=== PATIENT | male | born 1970 | race American Indian/Alaskan Native ===

== ENCOUNTER 2018-06-26 23:30 | Emergency (ER) | payer MEDICAID, SELFPAY ==
[2018-06-26 23:38] VITALS: BP 98/65; PULSE 80; RESP 18; TEMP 36.6; O2SAT 98
--- NOTE | 2018-06-27 01:20 | ED.SYNCOPE ---
HPI - Syncope General Chief Complaint: Syncope Stated Complaint: passed out several times, thinks had stroke Time Seen by Provider: 06/27/18 01:19 Source: patient Mode of arrival: ambulatory History of Present Illness HPI narrative: Patient is a 47-year-old male who presents with 2 syncopal episodes. He was outside [employer] most of the day. When he got home he was on the couch he got up to use the restroom he got tunnel vision lightheaded a felt as though he was going down. He lowered himself to the ground passed out briefly. No nausea or vomiting some brief all shaking all lasting under 2 min. He was able to get up apparently he passed out again. His he says that he only ate breakfast this morning he had very little water. He denies any alcohol use. Does admit to smoking THC oil. complaint: felt faint Related Data Home Medications Medication Instructions Recorded Confirmed ASPIRIN (Aspirin) 324 mg PO #0 02/27/11 IBUPROFEN (Motrin / Advil) 600 mg PO PRN #0 02/27/11 Review of Systems Review of Systems All systems reviewed & are unremarkable except as noted in HPI and below Constitutional Denies body ache(s), Denies chills, Denies fatigue and Denies fever(s) Eyes Denies change in vision, Denies eye discharge, Denies irritation and Denies loss of vision ENT Ears, Nose, Mouth, and Throat: Denies vertigo and Denies dizziness Cardiovascular Reports as per HPI, Denies chest pain, Reports syncope, Denies irregular heart rhythm, Denies dyspnea and Denies dyspnea on exertion Respiratory Denies cough, Denies dyspnea, Denies dyspnea on exertion and Denies wheezing Gastrointestinal Gastrointestinal: Denies abdominal pain, Denies change in bowel habits, Denies diarrhea, Denies nausea and Denies vomiting Musculoskeletal Denies back pain, Denies muscle weakness, Denies numbness and Denies tingling Neurologic Denies vertigo, Denies dizziness, Reports syncope, Denies loss of vision, Denies numbness and Denies tingling Endocrine Denies fatigue Allergic/Immunologic Denies wheezing [facility] Medical History Healthy adult (Acute) Social History Smoking Status: Former smoker Exam Initial Vital Signs Initial Vital Signs: Vital Signs Temperature 98 F 06/26/18 23:38 Pulse Rate 80 06/26/18 23:38 Respiratory Rate 18 06/26/18 23:38 Blood Pressure 98/65 06/26/18 23:38 Pulse Oximetry 98 06/26/18 23:38 GENERAL: Well-appearing, well-nourished and in no acute distress. HEENT: Head atraumatic,EOMI, pupils reactive, face symmetric, moist mucous membranes CARDIOVASCULAR: Regular rate and rhythm without murmurs, rubs or gallops. RESPIRATORY: Breath sounds equal bilaterally, no wheezes rales or rhonchi. ABDOMEN: Soft, nontender. Normoactive bowel sounds all 4 quadrants. No guarding or rebound. EXTREMITIES: Normal range of motion, no clubbing or edema. Neurovascularly intact NEUROLOGICAL: Alert and oriented x4.Normal gait and speech. Cranial nerves II through XII grossly intact. Good [id number], good [id number], strength equal bilaterally, no dysarthria or aphasia, sensation in tact to soft touch bilaterally, no visual changes, no facial droop SKIN: Warm, dry, no laceration, no petechiae, no rashes or lesions. Scores NIH Stroke Scale Level of Conciousness: Alert, keenly responsive Ask month/age: Answers both questions correctly. Open/close eyes, close hand: Performs both tasks correctly Best gaze horizontal: Normal Visual silverman: No visual loss Facial palsy: Normal symetrical movement Left arm drift: No drift for full 10 sec Right arm drift: No drift for full 10 sec Left leg drift: No drift for full 10 sec Right leg drift: No drift for full 10 sec Limb ataxia: Absent Sensory on face/arms/legs: Normal, no sensory loss Best language: No aphasia, normal Dysarthria: Normal Extinction or inattention: No abnormality Total NIH Stroke scale score: 0 Course Orders Ordered: ED Orders 06/27/18 EKG-12 Lead Routine 06/27/18 01:24 Basic Metabolic Panel Stat Complete Blood Count AUTO DIFF Stat Discontinued Medications Sodium Chloride (Normal Saline 0.9%) 1,000 mls @ 1,000 mls/hr IV BOLUS ONE Stop: 06/27/18 02:18 Last Infusion: 06/27/18 02:30 Dose: 0 mls/hr Admin: 06/27/18 01:40 Dose: 1,000 mls/hr Vital Signs - 8 hr 06/26/18 23:38 06/27/18 02:35 Temperature 98 F Pulse Rate 80 75 Respiratory Rate 18 15 Blood Pressure 98/65 115/77 Pulse Oximetry 98 100 MDM - Syncope Lab Data Attestation: I reviewed the patient's lab results. Result diagrams: 06/27/18 01:24 06/27/18 01:24 Lab Results 06/27/18 06/27/18 Range/Units 01:24 01:24 WBC 12.6 H (4.5-11.0) X10^3/uL RBC 5.14 (4.5-5.9) X10^6/uL Hgb 14.7 (13.5-17.5) g/dL Hct 44.7 (41-53) % MCV 86.9 (80-100) fL MCH 28.6 (26-34) PG MCHC 32.9 (30-36) % RDW 16.1 H (11.6-14.8) % Plt Count 219 (150-400) X10^3/uL Neut % (Auto) 82.7 H (50-75) % Lymph % (Auto) 9.8 L (25-40) % [place] % (Auto) 6.6 (3-14) % Eos % (Auto) 0.1 L (2-4) % Baso % (Auto) 0.8 (0-2) % Neut # (Auto) 96848 H (2803-6350) /uL Sodium 136 L (137-145) mmol/L Potassium 3.7 (3.4-5.1) mmol/L Chloride 94 L (98-107) mmol/L Carbon Dioxide 31 (22-32) mmol/L BUN 10 (9-20) mg/dL Creatinine 0.80 (0.66-1.25) mg/dL Estimated GFR > 60.0 (>60) mL/min BUN/Creatinine Ratio 12.5 (6-22) Glucose 145 H (70-100) mg/dL Calcium 9.0 (8.4-10.2) mg/dL ECG Data Attestation: I personally reviewed and interpreted this ECG as follows: Prior ECG tracings: available for review Interpretation: Normal sinus rhythm rate [address] changes normal intervals MDM Narrative Medical decision making narrative: Patient is feeling much better. He likely had a vasovagal episode. Discharge Plan Departure Patient Disposition: Home, Self-Care Clinical Impression: Vasovagal syncope Discharge Date/Time: 06/27/18 02:36 Interventions: ED Discharge Assessment Last Done: 06/27/18 02:35 Instructions: DI for Syncope in Adults (Fainting) Activity Restrictions/Additional Instructions: *You have been diagnosed with fainting episode *What to do: She eat frequently drink plenty of water throughout the day *Continue to take medications as directed *Follow up with your primary care provider in 2-3 days *Return to ER if you should have any new, worsening or concerning symptoms Prescriptions: No Action IBUPROFEN (Motrin / Advil) 600 mg PO PRN Qty: 0 RF: 0 ASPIRIN (Aspirin) 324 mg PO Qty: 0 RF: 0
--- NOTE | 2018-06-27 01:25 | ED_ITS ---
HPI - Syncope General Chief Complaint: Syncope Stated Complaint: passed out several times, thinks had stroke Time Seen by Provider: 06/27/18 01:19 Source: patient Mode of arrival: ambulatory History of Present Illness HPI narrative: Patient is a 47-year-old male who presents with 2 syncopal episodes. He was outside [employer] most of the day. When he got home he was on the couch he got up to use the restroom he got tunnel vision lightheaded a felt as though he was going down. He lowered himself to the ground passed out briefly. No nausea or vomiting some brief all shaking all lasting under 2 min. He was able to get up apparently he passed out again. His he says that he only ate breakfast this morning he had very little water. He denies any alcohol use. Does admit to smoking THC oil. complaint: felt faint Related Data Home Medications Medication Instructions Recorded Confirmed ASPIRIN (Aspirin) 324 mg PO #0 02/27/11 IBUPROFEN (Motrin / Advil) 600 mg PO PRN #0 02/27/11 Review of Systems Review of Systems All systems reviewed & are unremarkable except as noted in HPI and below Constitutional Denies body ache(s), Denies chills, Denies fatigue and Denies fever(s) Eyes Denies change in vision, Denies eye discharge, Denies irritation and Denies loss of vision ENT Ears, Nose, Mouth, and Throat: Denies vertigo and Denies dizziness Cardiovascular Reports as per HPI, Denies chest pain, Reports syncope, Denies irregular heart rhythm, Denies dyspnea and Denies dyspnea on exertion Respiratory Denies cough, Denies dyspnea, Denies dyspnea on exertion and Denies wheezing Gastrointestinal Gastrointestinal: Denies abdominal pain, Denies change in bowel habits, Denies diarrhea, Denies nausea and Denies vomiting Musculoskeletal Denies back pain, Denies muscle weakness, Denies numbness and Denies tingling Neurologic Denies vertigo, Denies dizziness, Reports syncope, Denies loss of vision, Denies numbness and Denies tingling Endocrine Denies fatigue Allergic/Immunologic Denies wheezing [facility] Medical History Healthy adult (Acute) Social History Smoking Status: Former smoker Exam Initial Vital Signs Initial Vital Signs: Vital Signs Temperature 98 F 06/26/18 23:38 Pulse Rate 80 06/26/18 23:38 Respiratory Rate 18 06/26/18 23:38 Blood Pressure 98/65 06/26/18 23:38 Pulse Oximetry 98 06/26/18 23:38 GENERAL: Well-appearing, well-nourished and in no acute distress. HEENT: Head atraumatic,EOMI, pupils reactive, face symmetric, moist mucous membranes CARDIOVASCULAR: Regular rate and rhythm without murmurs, rubs or gallops. RESPIRATORY: Breath sounds equal bilaterally, no wheezes rales or rhonchi. ABDOMEN: Soft, nontender. Normoactive bowel sounds all 4 quadrants. No guarding or rebound. EXTREMITIES: Normal range of motion, no clubbing or edema. Neurovascularly intact NEUROLOGICAL: Alert and oriented x4.Normal gait and speech. Cranial nerves II through XII grossly intact. Good [id number]-[id number], good flkm-fj-dlzy, strength equal bilaterally, no dysarthria or aphasia, sensation in tact to soft touch bilaterally, no visual changes, no facial droop SKIN: Warm, dry, no laceration, no petechiae, no rashes or lesions. Scores NIH Stroke Scale Level of Conciousness: Alert, keenly responsive Ask month/age: Answers both questions correctly. Open/close eyes, close hand: Performs both tasks correctly Best gaze horizontal: Normal Visual silverman: No visual loss Facial palsy: Normal symetrical movement Left arm drift: No drift for full 10 sec Right arm drift: No drift for full 10 sec Left leg drift: No drift for full 10 sec Right leg drift: No drift for full 10 sec Limb ataxia: Absent Sensory on face/arms/legs: Normal, no sensory loss Best language: No aphasia, normal Dysarthria: Normal Extinction or inattention: No abnormality Total NIH Stroke scale score: 0 Course Orders Ordered: ED Orders 06/27/18 EKG-12 Lead Routine 06/27/18 01:24 Basic Metabolic Panel Stat Complete Blood Count AUTO DIFF Stat Discontinued Medications Sodium Chloride (Normal Saline 0.9%) 1,000 mls @ 1,000 mls/hr IV BOLUS ONE Stop: 06/27/18 02:18 Last Infusion: 06/27/18 02:30 Dose: 0 mls/hr Admin: 06/27/18 01:40 Dose: 1,000 mls/hr Vital Signs - 8 hr 06/26/18 23:38 06/27/18 02:35 Temperature 98 F Pulse Rate 80 75 Respiratory Rate 18 15 Blood Pressure 98/65 115/77 Pulse Oximetry 98 100 MDM - Syncope Lab Data Attestation: I reviewed the patient's lab results. Result diagrams: 06/27/18 01:24 06/27/18 01:24 Lab Results 06/27/18 06/27/18 Range/Units 01:24 01:24 WBC 12.6 H (4.5-11.0) X10^3/uL RBC 5.14 (4.5-5.9) X10^6/uL Hgb 14.7 (13.5-17.5) g/dL Hct 44.7 (41-53) % MCV 86.9 (80-100) fL MCH 28.6 (26-34) PG MCHC 32.9 (30-36) % RDW 16.1 H (11.6-14.8) % Plt Count 219 (150-400) X10^3/uL Neut % (Auto) 82.7 H (50-75) % Lymph % (Auto) 9.8 L (25-40) % [place] % (Auto) 6.6 (3-14) % Eos % (Auto) 0.1 L (2-4) % Baso % (Auto) 0.8 (0-2) % Neut # (Auto) 60258 H (6759-2937) /uL Sodium 136 L (137-145) mmol/L Potassium 3.7 (3.4-5.1) mmol/L Chloride 94 L (98-107) mmol/L Carbon Dioxide 31 (22-32) mmol/L BUN 10 (9-20) mg/dL Creatinine 0.80 (0.66-1.25) mg/dL Estimated GFR > 60.0 (>60) mL/min BUN/Creatinine Ratio 12.5 (6-22) Glucose 145 H (70-100) mg/dL Calcium 9.0 (8.4-10.2) mg/dL ECG Data Attestation: I personally reviewed and interpreted this ECG as follows: Prior ECG tracings: available for review Interpretation: Normal sinus rhythm rate [address] changes normal intervals MDM Narrative Medical decision making narrative: Patient is feeling much better. He likely had a vasovagal episode. Discharge Plan Departure Patient Disposition: Home, Self-Care Clinical Impression: Vasovagal syncope Discharge Date/Time: 06/27/18 02:36 Interventions: ED Discharge Assessment Last Done: 06/27/18 02:35 Instructions: DI for Syncope in Adults (Fainting) Activity Restrictions/Additional Instructions: *You have been diagnosed with fainting episode *What to do: She eat frequently drink plenty of water throughout the day *Continue to take medications as directed *Follow up with your primary care provider in 2-3 days *Return to ER if you should have any new, worsening or concerning symptoms Prescriptions: No Action IBUPROFEN (Motrin / Advil) 600 mg PO PRN Qty: 0 RF: 0 ASPIRIN (Aspirin) 324 mg PO Qty: 0 RF: 0
[2018-06-27] MEDS: SODIUM CHLORIDE 0.9% 1,000 ML 1000 ML IV (01:40)
[2018-06-27 01:43] LABS: BUN Creatinine Ratio 12.5 (6-22); Blood Urea Nitrogen 10 mg/dL (9-20); Carbon Dioxide 31 mmol/L (22-32); Chloride 94 mmol/L (98-107); Estimated Glomerular Filt Rate > 60.0 mL/min (>60); Glucose 145 mg/dL (70-100); HEMOLYSIS < 15 (0-50); Potassium 3.7 mmol/L (3.4-5.1); Sodium 136 mmol/L (137-145)
[2018-06-27 01:44] LABS: Add Manual Diff / Slide Review NO; Basophils Percent Auto 0.8 % (0-2); Eosinophils Percent Auto 0.1 % (2-4); Hematocrit 44.7 % (41-53); Hemoglobin 14.7 g/dL (13.5-17.5); Lymphocytes Percent Auto 9.8 % (25-40); Mean Corpuscular HGB Conc 32.9 % (30-36); Mean Corpuscular Hemoglobin 28.6 PG (26-34); Mean Corpuscular Volume 86.9 fL (80-100); Monocytes Percent Auto 6.6 % (3-14); Neutrophils Absolute Auto 10400 /uL (3000-5900); Neutrophils Percent Auto 82.7 % (50-75); Platelet Count 219 X10^3/uL (150-400); Red Blood Cell Count 5.14 X10^6/uL (4.5-5.9); Red Cell Distribution Width 16.1 % (11.6-14.8); White Blood Cell Count 12.6 X10^3/uL (4.5-11.0)
[2018-06-27 02:35] VITALS: BP 115/77; PULSE 75; RESP 15; O2SAT 100
== END 2018-06-27 02:36 | disposition home or self-care (01) ==
PROVIDERS: Emergency Provider Emergency Medicine
DX: R55 Syncope and collapse (principal)
CPT/HCPCS: 36591; 80048; 85025; 93005; 93010; 96360; 99283; 99284